=== PATIENT | female | born 1945 | race Two or more races ===

== ENCOUNTER 2019-09-22 21:51 | Inpatient (IN) | payer MEDICARE, BC ==
[~2019-09-22] VITALS: Ht 172.7 cm; Wt 68.0 kg
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
[2019-09-22 22:22] LABS: BASOPHILS # (AUTO) 0.1 /CMM (0.0-0.2); BASOPHILS % (AUTO) 0.7 % (0.0-2.0); EOSINOPHILS % (AUTO) 4.5 % (0.0-6.0); HEMATOCRIT 48 % (33-45); HEMOGLOBIN 16.3 g/dL (11.5-14.8); LYMPHOCYTES # (AUTO) 1.7 /CMM (0.8-4.8); LYMPHOCYTES % (AUTO) 21.1 % (20.0-44.0); MEAN CORPUSCULAR HGB CONC 34 g/dl (31.0-36.0); MEAN CORPUSCULAR VOLUME 91 fL (82-100); MONOCYTES # (AUTO) 0.6 /CMM (0.1-1.30); MONOCYTES % (AUTO) 7.1 % (2.0-12.0); NEUTROPHILS # (AUTO) 5.4 /CMM (1.8-8.9); NEUTROPHILS % (AUTO) 66.6 % (43.0-81.0); PLATELET COUNT (AUTO) 255 /CMM (150-450); RED BLOOD CELL COUNT(AUTO) 5.28 MIL/uL (4.0-5.2); WHITE BLOOD COUNT (AUTO) 8.2 K/uL (4.3-11.0)
[2019-09-22 22:24] LABS: APPEARANCE,URINE Clear (CLEAR); BILIRUBIN,URINE Negative (NEGATIVE); BLOOD, URINE Negative Ery/uL (NEGATIVE); COLOR,URINE Yellow (YELLOW); KETONES,URINE Negative (NEGATIVE); LEUKOCYTE ESTERASE ,URINE Small (NEGATIVE); NITRITE, URINE Negative (NEGATIVE); PROTEIN,URINE 100 mg/dl (NEGATIVE); UGLUCOSE Negative (NEGATIVE); UROBILINOGEN,URINE 0.2 EU/dL (0.2)
[2019-09-22 22:31] LABS: CALCIUM, SERUM 9.5 mg/dL (8.5-10.1); CARBON DIOXIDE 30 mmol/L (21-32); CHLORIDE 101 mmol/L (98-107); CREATININE 1.1 mg/dL (0.6-1.3); GLUCOSE 124 mg/dL (74-106); POTASSIUM 3.9 mmol/L (3.5-5.1); SODIUM SERUM 137 mmol/L (136-145); UREA NITROGEN, BLOOD 10 mg/dL (7-18)
[2019-09-22 22:36] LABS: ALANINE AMINOTRANSFERASE 31 U/L (12-78); ALBUMIN 4.2 g/dL (3.4-5.0); ALCOHOL, BLOOD < 3 mg/dL (0-0); ALKALINE PHOSPHATASE 112 U/L (46-116); ASPARTATE AMINOTRANSFERASE 25 U/L (15-37); BILIRUBIN,DIRECT 0.1 mg/dL (0.0-0.2); BILIRUBIN,TOTAL 0.5 mg/dL (0.2-1.0); SALICYLATE 9.1 mg/dL (2.8-20.0); TOTAL PROTEIN, SERUM 7.7 g/dL (6.4-8.2)
[2019-09-22 22:39] LABS: ACETAMINOPHEN < 2 ug/ml (10-30)
[2019-09-22 22:39] LABS: BACTERIA,URINE 1+ /HPF (None Seen); RBC,URINE NONE SEEN /HPF (0-2); SQUAMOUS EPITHELIAL CELL,UR Few /HPF (None Seen)
--- NOTE | 2019-09-22 23:01 | NUR ---
PT MEDICALLY CLEARED FOR PSYCH EVAL PER ER MD. FERNIE ESPINALW PAGED PER ER MD ORDER.
--- NOTE | 2019-09-22 23:42 | NUR ---
FERNIE ESPINALW AT BEDSIDE TO [place] WHEELER.
--- NOTE | 2019-09-22 23:45 | NUR ---
PT PLACED ON 5150 HOLD (GRAVELY DISABLED) BY FERNIE HAWK LCSW.
[2019-09-23] VITALS (7 sets, daily range): BP systolic 147–198; BP diastolic 70–105
--- NOTE | 2019-09-23 | NUR ---
ER MD SPOKE TO DR. MARTINEZ REGARDING PT ADMISSION.
--- NOTE | 2019-09-23 00:02 | NUR ---
GPS 219-1
--- NOTE | 2019-09-23 00:09 | NUR ---
REPORT CALLED TO CLAY ZULETA FAA. PENDING ADMISSION.
[2019-09-23] MEDS ORDERED: CLON0.2T PO (00:15)
[2019-09-23] MEDS ORDERED: BENA40TA8 PO (00:15)
[2019-09-23] MEDS ORDERED: IBAN150T16 PO (00:15)
[2019-09-23] MEDS ORDERED: SERT100T PO (00:15)
[2019-09-23] MEDS ORDERED: HYDR-500 PO (00:15)
[2019-09-23] MEDS ORDERED: ATOR40TA PO (00:15)
[2019-09-23] MEDS ORDERED: LEVO25TA9 PO (00:15)
[2019-09-23] MEDS ORDERED: ALPR0.5T PO (00:15)
[2019-09-23] MEDS ORDERED: ONDANSETRON HCL/PF 4 MG/2 ML VIAL ONE ×2 (00:25→02:09)
[2019-09-23] MEDS ORDERED: hydrALAZINE HCL IV 20 MG VIAL ONE ×2 (00:25→01:07)
[2019-09-23] MEDS ORDERED: ONDANSETRON HCL/PF - ER 4 MG/2 ML VIAL IV ONE (00:30)
[2019-09-23] MEDS ORDERED: hydrALAZINE HCL IV 20 MG VIAL IV ONE ×2 (00:30→02:00)
--- NOTE | 2019-09-23 02:09 | NUR ---
zofran 4mg ivp verbal order from dr. dorantes. unable to add order d/t patient location already in GPS
--- NOTE | 2019-09-23 02:41 | NUR ---
report given to margaret perez for update on pt's disposition
[2019-09-23] MEDS ORDERED: MAGNESIUM HYDROXIDE 30 ML UDC PO PRN (03:30)
[2019-09-23] MEDS ORDERED: ACETAMINOPHEN 325 MG TABLET PO PRN (03:30)
[2019-09-23] MEDS ORDERED: MAG HYDROX/AL HYDROX/SIMETH 30 ML UDC PO PRN (03:30)
[2019-09-23] MEDS ORDERED: LORAZEPAM 1 MG TABLET PO PRN (03:30)
[2019-09-23] MEDS ORDERED: ZOLPIDEM TARTRATE 5 MG TABLET PO PRN (03:30)
[2019-09-23] MEDS ORDERED: BLOOD SUGAR DIAGNOSTIC 1 EACH STRIP IN ONE (04:00)
[2019-09-23] MEDS ORDERED: GABA-534 PO (04:13)
[2019-09-23] MEDS ORDERED: AMLO10TA7 PO (04:15)
[2019-09-23] MEDS ORDERED: ISOS60TA4 PO (04:16)
[2019-09-23] MEDS ORDERED: ALBU8.5H8 INH (04:18)
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
[2019-09-23] MEDS ORDERED: ONDANSETRON HCL 4 MG/5 ML SOLUTION PO PRN (07:00)
[2019-09-23] MEDS: NICOTINE PATCH (21MG) 21 MG PATCH.TD24 TD SCH (09:29)
--- NOTE | 2019-09-23 10:25 | NUR ---
pt w ongoing nausea which has decreased w zofran. however, pt c/o gastric pain. lost charge card clerk reveiwed. try maalox 30cc monitor assist
--- NOTE | 2019-09-23 10:48 | NUR ---
RN NOTE- OPTOMETRIST ENEDELIA ROSADO ORDERED REGLAN 10 MG PO Q6H PRN. FIRST DOSE GIVEN
[2019-09-23] MEDS ORDERED: METOCLOPRAMIDE HCL 10 MG TABLET PO PRN (11:00)
--- NOTE | 2019-09-23 12:00 | NUR ---
RN NOTE- NAUSEA VOMITING CONTINUES. ENEDELIA ROSADO ORDERED ABDOMINAL KUB. STAT. ORDERED.
--- NOTE | 2019-09-23 12:30 | NUR ---
Family Contact: ELKE spoke to the pts brother, Rhys ([phone]), and informed him about the pts current behavior. He stated that the pt has been hallucinating and has been paranoid. He states that the pt lives in the pts mother's trailer and that the mother lives nearby as well as another brother. Pts brother stated that he does not believe that returning to the trailer would be the best decision for her and stated that his niece recommended [facility]. ELKE stated that she work on placing the pt at the facility.
--- NOTE | 2019-09-23 12:34 | NUR ---
Facility Contact: ELKE contacted Gracie ([phone]), implant coordinator for [facility], and confirmed that the pt can be discharged to their facility once she is stable.
--- NOTE | 2019-09-23 15:45 | NUR ---
RN NOTE- ELEVATED BP 198/105. ENEDELIA ROSADO ORDERED HYDRALAZINE 50 MG X ONE DOSE. CURRENTLY WITHOUT N&V, CALM QUIET.
[2019-09-23] MEDS: GABAPENTIN 300 MG CAPSULE PO SCH (16:10)
[2019-09-23] MEDS ORDERED: hydrALAZINE HCL 50 MG TABLET PO ONE (16:30)
--- NOTE | 2019-09-23 16:36 | NUR ---
Initial Discharge Plan: Pt currently resides in her mother's trailer located at [address] [place] [address]. Pts brother, Rhys ([phone]), stated that the pt was accepted to [facility]. SW will work with the MD and the pt regarding appropriate discharge planning. SW will form a safe and proper plan.
[2019-09-23] MEDS ORDERED: hydrALAZINE HCL 50 MG TABLET PO SCH (18:30)
[2019-09-23] MEDS ORDERED: NIFEdipine XL (30MG) 30 MG TAB PO SCH (18:30)
--- NOTE | 2019-09-23 18:32 | NUR ---
RN NOTE- PT W DECREASED N&V THIS AFTERNOON. PT EATING AND DRINKING VERY LITTLE. ENEDELIA ROSADO AWARE. THIS AFTERNOON, PT BP INCREASED . HYDRALAZINE 50 MG GIVEN X ONE DOSE. BP RECHECK - 197/103. ENEDELIA ROSADO ORDERED PROCARDIA 60 MG X ONE DOSE AND HYDRALAZINE 50 MG X ONE DOSE. PT NAUSEA INCREASING AGAIN. ENEDELIA ROSADO AWARE THAT MEDS TO BE RECONCILED.
[2019-09-23] MEDS ORDERED: ALBUTEROL SULFATE INH 18 GM HFA.AER.AD IH PRN (19:00)
[2019-09-23] MEDS ORDERED: hydrOXYzine PAMOATE 25 MG CAPSULE PO PRN (19:30)
[2019-09-23] MEDS: CEPHALEXIN MONOHYDRATE 250 MG CAPSULE PO SCH (19:39)
--- NOTE | 2019-09-23 20:23 | NUR ---
GPS-RN NOTE: PATIENT C/O FEELING ANXIOUS AND REQUESTING FOR ATIVAN. ADMINISTERED ATIVAN 1MG PO ORDERED. WILL CONTINUE TO MONITOR FOR PATIENT'S SAFETY.
--- NOTE | 2019-09-23 21:16 | NUR ---
GPS-RN NOTE: PATIENT C/O OF CONSTIPATION. ADMINISTERED MOM 30ML PO ORDERED. WILL CONTINUE TO MONITOR.
[2019-09-23] MEDS ORDERED: CLONIDINE HCL 0.1 MG TABLET PO PRN (21:30)
[2019-09-23] MEDS ORDERED: ATORVASTATIN 40 MG TABLET PO SCH (22:00)
[2019-09-23] MEDS ORDERED: QUETIAPINE FUMARATE 25 MG TABLET PO SCH (22:00)
--- NOTE | 2019-09-23 22:44 | NUR ---
GPS-RN NOTE: SPOKE WITH DR. MARTINEZ NOTIFIED OF PT'S BLOOD PRESSURE STILL NOTED TO BE ON THE HIGH SIDE. VITAL SIGNS TAKEN AND NOTED : BP 189/116 KY 107, O2 SATURATION 94% ON ROOM AIR. T98.5. DR. MARTINEZ ORDERED TO GIVE CLONIDINE AND EKG STAT NOTED AND CARRIED OUT. WILL CONTINUE TO MONITOR FOR PT'S SAFETY.
--- NOTE | 2019-09-23 23:13 | NUR ---
GPS-RN NOTE: EKG RESULT RELAYED TO DR. MARTINEZ EKG RESULT, SINUS RHYTHM WITH MARKED SINUS ARRHYTHMIA. DR. MARTINEZ ORDERED TO DO STAT TROPONIN NOTED AND CARRIED OUT. LATEST PATIENT'S BP 154/98, ME 126, T-98.2. NO C/O CHEST PAIN NOTED. WILL CONTINUE TO MONITOR.
--- NOTE | 2019-09-24 01:25 | NUR ---
GPS-RN NOTE: TROPONIN LEVEL RESULT RELAYED TO DR. MARTINEZ TROPONIN RESULTED TO 0.[address] MARTINEZ ORDERED TO REPEAT EKG AND TROPONIN IN 4HRS AND GIVE AN ASPIRIN 325MG PO X1 NOW, ORDERS NOTED AND CARRIED OUT.
[2019-09-24] MEDS ORDERED: ASPIRIN 325 MG TABLET PO ONE (01:30)
--- NOTE | 2019-09-24 05:42 | NUR ---
GPS-RN NOTE: REPEAT EKG RESULT RELAYED TO DR. MARTINEZ REPEAT EKG RESULT AND MD STATED "IT LOOKS BETTER". DR. MARTINEZ ORDERED 2D ECHOCARDIOGRAM AND ASPIRIN 81MG PO DAILY. ALL ORDERS NOTED AND CARRIED OUT. AWAITING FOR THE RESULT OF REPEAT TROPONIN. WILL ENDORSE TO THE DAY SHIFT NURSE FOR CONTINUITY OF CARE.
[2019-09-24] MEDS ORDERED: LEVOTHYROXINE SODIUM 25 MCG TABLET PO SCH (07:30)
[2019-09-24 08:00] VITALS: BP 118/60
[2019-09-24] MEDS: GABAPENTIN 300 MG CAPSULE PO SCH (08:01)
[2019-09-24] MEDS: NICOTINE PATCH (21MG) 21 MG PATCH.TD24 TD SCH (08:01)
[2019-09-24] MEDS: CEPHALEXIN MONOHYDRATE 250 MG CAPSULE PO SCH (08:01)
[2019-09-24 08:15] LABS: CHOLESTEROL 155 mg/dL (<200); HDL CHOLESTEROL 67 mg/dL (40-60); LDL 68 mg/dL (0-99); TRIGLYCERIDES 103 mg/dL (30-150)
--- NOTE | 2019-09-24 08:40 | NUR ---
RN NOTE- TROPONIN LEVEL BACK 0.215. LAST TROPONIN LEVEL 0.096. FORWARDED FINDINGS TO ENEDELIA ROSADO. HE'LL HAVE DR LUNA EVALUATE. CURRENT B/P- 118/60 HR-81
[2019-09-24 08:55] LABS: CALCIUM, SERUM 10.4 mg/dL (8.5-10.1); CARBON DIOXIDE 29 mmol/L (21-32); CHLORIDE 94 mmol/L (98-107); GLUCOSE 120 mg/dL (74-106); SODIUM SERUM 139 mmol/L (136-145); UREA NITROGEN, BLOOD 21 mg/dL (7-18)
[2019-09-24] MEDS ORDERED: BENAZEPRIL HCL 20 MG TABLET PO SCH (09:00)
[2019-09-24] MEDS ORDERED: CLONIDINE HCL 0.1 MG TABLET PO PRN (09:00)
[2019-09-24] MEDS ORDERED: ISOSORBIDE MONONITRATE (30MG) 30 MG TAB.SR.24H PO SCH (09:00)
[2019-09-24] MEDS ORDERED: SERTRALINE HCL 50 MG TABLET PO SCH (09:00)
[2019-09-24] MEDS ORDERED: ASPIRIN 81 MG TAB.CHEW PO SCH (09:00)
[2019-09-24] MEDS ORDERED: GABAPENTIN 300 MG CAPSULE PO SCH (09:00)
--- NOTE | 2019-09-24 09:00 | NUR ---
RN NOTE- CARDIAC ECHO BEING DONE, ATE 100% AM MEAL. MED COMPLIANT. B/P WNL THIS MORNING 118/60. GETTING PT OOB TO SHOWER LATER THIS MORNING DENIES ALL. CONFUSED
[2019-09-24 09:14] VITALS: BP 131/84
[2019-09-24] MEDS: POTASSIUM CHLORIDE 20 MEQ TAB.PRT.SR PO SCH ×3 (09:46→11:30)
--- NOTE | 2019-09-24 11:14 | NUR ---
DR. OCHOA COVERING FOR DR. PIEDRA MADE AWARE THAT PT. WITH AN ORDER TO TRANSFER TO MED-SURG AND ORDERED TO D/C PT. MED-SURG AND TO CONTINUE SAME MEDS INCLUDING PRN. Addendum: 09/24/19 at 1123 by REYES SANCHEZ RN PT. TO CONTINUE ON HOLD.
--- NOTE | 2019-09-24 11:25 | NUR ---
RN NOTE- THIS RN SPOKE W ENEDELIA ROSADO REGARDING PTS CHEST PAIN , ELEVATED BP, TROPONIN LEVELS AND CARDIAC ISSUES. ENEDELIA ROSADO ORDERED PT TO BE TRANSFERRED TO MED SURG FLOOR FOR ARF AND CHEST PAIN CARDIAC ISSUES. COVID TEST DONE AT THIS TIME PER ORDERS. DC PLANNING DONE, FAMILY INSTRUCTED OF TRANSFER AND PT UPDATED AND INFORMED,
[2019-09-24] MEDS ORDERED: ENOXAPARIN SODIUM 60 MG/0.6 ML DISP.SYRIN SQ SCH (12:00)
[2019-09-24] MEDS ORDERED: METOPROLOL TARTRATE 50 MG TABLET PO SCH (12:00)
[2019-09-24] MEDS ORDERED: ENOX60DI SQ (12:09)
[2019-09-24] MEDS ORDERED: NICO-676 TD (12:09)
[2019-09-24] MEDS ORDERED: ONDA4TAB5 PO (12:09)
[2019-09-24] MEDS ORDERED: METO25TA20 PO (12:09)
[2019-09-24] MEDS ORDERED: ACET-868 PO (12:09)
[2019-09-24] MEDS ORDERED: ASPI-1169 PO (12:09)
[2019-09-24] MEDS ORDERED: CEPH250C PO (12:09)
[2019-09-24] MEDS ORDERED: SERT50TA PO (12:09)
[2019-09-24] MEDS ORDERED: MAGN400O6 PO (12:09)
[2019-09-24] MEDS ORDERED: LORA-259 PO (12:09)
[2019-09-24] MEDS ORDERED: MAG30ORA PO (12:09)
[2019-09-24] MEDS ORDERED: ZOLP5TAB8 PO (12:09)
[2019-09-24] MEDS ORDERED: ALBU18HF2 INH (12:09)
[2019-09-24] MEDS ORDERED: METO-295 PO (12:09)
[2019-09-24] MEDS ORDERED: QUET50TA PO (12:09)
[2019-09-24] MEDS ORDERED: IV NS 0.9% 1,000 ML IV PRN (13:00)
[2019-09-24 15:56] LABS: BASOPHILS # (AUTO) 0.1 /CMM (0.0-0.2); BASOPHILS % (AUTO) 0.4 % (0.0-2.0); EOSINOPHILS % (AUTO) 0.8 % (0.0-6.0); HEMATOCRIT 50 % (33-45); HEMOGLOBIN 16.9 g/dL (11.5-14.8); LYMPHOCYTES # (AUTO) 2.5 /CMM (0.8-4.8); LYMPHOCYTES % (AUTO) 16.3 % (20.0-44.0); MEAN CORPUSCULAR HGB CONC 34 g/dl (31.0-36.0); MEAN CORPUSCULAR VOLUME 90 fL (82-100); MONOCYTES # (AUTO) 1.1 /CMM (0.1-1.30); MONOCYTES % (AUTO) 7.1 % (2.0-12.0); NEUTROPHILS # (AUTO) 11.8 /CMM (1.8-8.9); NEUTROPHILS % (AUTO) 75.4 % (43.0-81.0); PLATELET COUNT (AUTO) 286 /CMM (150-450); RED BLOOD CELL COUNT(AUTO) 5.56 MIL/uL (4.0-5.2); WHITE BLOOD COUNT (AUTO) 15.6 K/uL (4.3-11.0)
== END 2019-09-24 12:25 | disposition short-term general hospital (02) | DRG 885 ==
LOC: ER 21:51 → GPS 09-23 00:47
PROVIDERS: ADMIT Psychiatry & Neurology Psychiatry; ATTEND Student in an Organized Health Care Education/Training Program
DX: F29 Unspecified psychosis not due to a substance or known physiological condition (principal); N17.9 Acute kidney failure, unspecified; I21.A1 Myocardial infarction type 2; N39.0 Urinary tract infection, site not specified; F41.9 Anxiety disorder, unspecified; F03.90 Unspecified dementia, unspecified severity, without behavioral disturbance, psychotic disturbance, mood disturbance, and anxiety; I10 Essential (primary) hypertension; E03.9 Hypothyroidism, unspecified; E78.5 Hyperlipidemia, unspecified; F22 Delusional disorders; F25.0 Schizoaffective disorder, bipolar type; E86.0 Dehydration; F17.210 Nicotine dependence, cigarettes, uncomplicated
CPT/HCPCS: 36415; 74018; 80048-TC; 80061-TC; 80076-TC; 80305; 81000-TC; 84443-TC; 84484-TC; 85025-TC; 87081-TC; 87086-TC; 93307-TC; G0480; J0360; J1650; J2405; J8597; Q0162; U0003-CS

== ENCOUNTER 2019-09-24 11:58 | Inpatient (IN) | payer MEDICARE, BC ==
[~2019-09-24] VITALS: Ht 154.9 cm; Wt 68.0 kg
[~2019-09-24 11:58] MED LIST: ALBU8.5H8 INH; AMLO10TA7 PO; ATOR40TA PO; BENA40TA8 PO; CLON0.2T PO; GABA-534 PO; HYDR-500 PO; IBAN150T16 PO; ISOS60TA4 PO; LEVO25TA9 PO
[2019-09-24] MEDS ORDERED: ASPI-1169 PO (12:09)
[2019-09-24] MEDS ORDERED: QUET50TA PO (12:09)
[2019-09-24] MEDS ORDERED: ENOX60DI SQ (12:09)
[2019-09-24] MEDS ORDERED: MAGN400O6 PO (12:09)
[2019-09-24] MEDS ORDERED: ONDA4TAB5 PO (12:09)
[2019-09-24] MEDS ORDERED: CEPH250C PO (12:09)
[2019-09-24] MEDS ORDERED: NICO-676 TD (12:09)
[2019-09-24] MEDS ORDERED: METO-295 PO (12:09)
[2019-09-24] MEDS ORDERED: ALBU18HF2 INH (12:09)
[2019-09-24] MEDS ORDERED: MAG30ORA PO (12:09)
[2019-09-24] MEDS ORDERED: LORA-259 PO (12:09)
[2019-09-24] MEDS ORDERED: ACET-868 PO (12:09)
[2019-09-24] MEDS ORDERED: SERT50TA PO (12:09)
[2019-09-24] MEDS ORDERED: ZOLP5TAB8 PO (12:09)
[2019-09-24] MEDS ORDERED: METO25TA20 PO (12:09)
[2019-09-24 13:30] VITALS: BP 103/66
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
--- NOTE | 2019-09-24 14:00 | NUR ---
NOTIFIED NOTIFIED DR. ROSADO RE ADMISSION. PER MD HE WILL PUT IN ADMITTING ORDERS.
[2019-09-24] MEDS ORDERED: LORAZEPAM 1 MG TABLET PO PRN (14:30)
[2019-09-24] MEDS ORDERED: QUETIAPINE FUMARATE 25 MG TABLET PO PRN (14:30)
[2019-09-24] MEDS ORDERED: ONDANSETRON HCL/PF 4 MG/2 ML VIAL IVP PRN (14:30)
[2019-09-24] MEDS ORDERED: Z GUARD REMEDY 2 OZ OINT TP PRN (14:30)
[2019-09-24] MEDS ORDERED: ACETAMINOPHEN 325 MG TABLET PO PRN (14:30)
[2019-09-24] MEDS ORDERED: ALBUTEROL SULFATE INH 18 GM HFA.AER.AD IH PRN (14:30)
[2019-09-24] MEDS ORDERED: MAG HYDROX/AL HYDROX/SIMETH 30 ML UDC PO PRN (14:30)
[2019-09-24] MEDS ORDERED: METOCLOPRAMIDE HCL 10 MG TABLET PO PRN (14:30)
[2019-09-24] MEDS ORDERED: ZOLPIDEM TARTRATE 5 MG TABLET PO PRN (14:30)
[2019-09-24] MEDS ORDERED: hydrOXYzine 10 MG TABLET PO PRN (15:00)
--- NOTE | 2019-09-24 15:00 | NUR ---
COVID TESTING SPECIMEN COLLECTED FOR COVID TESTING. SENT TO LAB.
[2019-09-24] MEDS: IV NS 0.9% 1,000 ML IV PRN (16:32)
[2019-09-24] MEDS: CEPHALEXIN MONOHYDRATE 250 MG CAPSULE PO SCH (16:51)
[2019-09-24] MEDS: GABAPENTIN 300 MG CAPSULE PO SCH (16:51)
[2019-09-24] MEDS: ENOXAPARIN SODIUM 60 MG/0.6 ML DISP.SYRIN SQ SCH (16:52)
--- NOTE | 2019-09-24 17:00 | NUR ---
TROPONIN NOTIFIED DR. ROSADO RE: TROPONIN RESULTS. AWARE.
[2019-09-24] MEDS: METOPROLOL TARTRATE 25 MG TABLET PO SCH ×2 (17:10→23:56)
--- NOTE | 2019-09-24 18:25 | NUR ---
PLY BANDER CLOSING NOTES PT IN BED. AWAKE, ALERT AND ORIENTED X 3. WITH SOME PARANOIA. AMBULATORY. NO CARDIAC OR RESP DISTRESS NOTED. NO COMPLAINTS OF PAIN OR DISCOMFORT. NO SOB NOTED. SATURATING WELL ON ROOM AIR. IV ACCESS NOTED ON L FOREARM G20. INTACT ND PATENT AND FLUSHING WELL. NS RUNNING AT 75ML/HR. TOLERATING IV FLUIDS WELL. PT CONTINENT OF B/B. AMBULATES TO THE BATHROOM. SITTER BY BEDSIDE. SAFETY PRECAUTIONS IN PLACE. BED LOCKED AND IN LOW POSITION. SIDE RAILS UP. BED ALARM ON. WILL ENDORSE TO NEXT SHIFT.
--- NOTE | 2019-09-24 19:10 | NUR ---
CLINICAL RESEARCH COORDINATOR OPENING NOTES: Received pt awake in bed A&Ox3 on isolation for R/O Covid. SR on tele monitor. On room air, tolerating well. No SOB or respiratory distress noted. No pain noted at this time. Pt ambulatory with steady gait. Has 1:1 sitter. IV site on left FA patent and flushing with NS running at 75ml/hr tolerating well. Dressing c/d/i. Safety measures met. Will continue to monitor.
[2019-09-24 20:00] VITALS: BP 116/74
[2019-09-24] MEDS: ATORVASTATIN 40 MG TABLET PO SCH (21:20)
[2019-09-25] VITALS: BP 136/88
[2019-09-25 04:00] VITALS: BP 148/68
--- NOTE | 2019-09-25 05:57 | NUR ---
[employer] POLICE OFFICER NOTE: 0550: Pt noted w/ BP: 157/79 and HR: 47. 0553: Paged Dr. Linn who gave order to hold 0600 dose. Order noted.
[2019-09-25] MEDS: METOPROLOL TARTRATE 25 MG TABLET PO SCH ×3 (05:59→18:00)
[2019-09-25 06:45] LABS: BASOPHILS # (AUTO) 0.1 /CMM (0.0-0.2); BASOPHILS % (AUTO) 0.9 % (0.0-2.0); EOSINOPHILS % (AUTO) 2.6 % (0.0-6.0); HEMATOCRIT 49 % (33-45); HEMOGLOBIN 16.6 g/dL (11.5-14.8); LYMPHOCYTES # (AUTO) 2.6 /CMM (0.8-4.8); LYMPHOCYTES % (AUTO) 27.8 % (20.0-44.0); MEAN CORPUSCULAR HGB CONC 34 g/dl (31.0-36.0); MEAN CORPUSCULAR VOLUME 90 fL (82-100); MONOCYTES # (AUTO) 0.7 /CMM (0.1-1.30); MONOCYTES % (AUTO) 7.9 % (2.0-12.0); NEUTROPHILS # (AUTO) 5.7 /CMM (1.8-8.9); NEUTROPHILS % (AUTO) 60.8 % (43.0-81.0); PLATELET COUNT (AUTO) 242 /CMM (150-450); RED BLOOD CELL COUNT(AUTO) 5.42 MIL/uL (4.0-5.2); WHITE BLOOD COUNT (AUTO) 9.4 K/uL (4.3-11.0)
--- NOTE | 2019-09-25 06:56 | NUR ---
FOOD SAFETY MANAGER CLOSING NOTES: Pt resting in bed comfortably sating well on RA. Isolation precautions in place for R/O Covid. No SOB or respiratory distress noted during shift. No acute changes noted during shift. All medications administered as ordered. Safety measures in place. Will endorse to AM nurse for MOHAN.
[2019-09-25 07:00] LABS: CHOLESTEROL 130 mg/dL (<200); CREATINE KINASE, TOTAL 339 U/L (26-192); HDL CHOLESTEROL 42 mg/dL (40-60); LDL 59 mg/dL (0-99); THYROID STIMULATING HORMONE 1.746 uIU/mL (0.358-3.74); TRIGLYCERIDES 184 mg/dL (30-150)
--- NOTE | 2019-09-25 07:57 | NUR ---
PUMP STITCHER NOTES: Received Patient resting in bed comfortably in moderate high back rest. sating well on RA. Isolation precautions in place for R/O Covid. Sitter noted at bedside. No SOB or respiratory distress noted at this time. Safety measures in place, bed placed in lowest locked position with side rails up x2. call light within easy reach. Will Continue to monitor.
[2019-09-25 08:00] VITALS: BP 187/97
[2019-09-25] MEDS: LEVOTHYROXINE SODIUM 25 MCG TABLET PO SCH (08:30)
[2019-09-25] MEDS: NICOTINE PATCH (14MG) 14 MG PATCH.TD24 TD SCH (08:31)
[2019-09-25] MEDS: SERTRALINE HCL 50 MG TABLET PO SCH (08:31)
[2019-09-25] MEDS: ASPIRIN 81 MG TAB.CHEW PO SCH (08:31)
[2019-09-25] MEDS: CEPHALEXIN MONOHYDRATE 250 MG CAPSULE PO SCH ×3 (08:31→16:10)
[2019-09-25] MEDS: GABAPENTIN 300 MG CAPSULE PO SCH ×3 (08:31→16:10)
[2019-09-25 08:34] LABS: ALBUMIN 3.8 g/dL (3.4-5.0); ALKALINE PHOSPHATASE 99 U/L (46-116); ASPARTATE AMINOTRANSFERASE 49 U/L (15-37); BILIRUBIN,TOTAL 0.5 mg/dL (0.2-1.0); CARBON DIOXIDE 27 mmol/L (21-32); CHLORIDE 94 mmol/L (98-107); CREATININE 1.6 mg/dL (0.6-1.3); PHOSPHORUS 2.9 mg/dL (2.5-4.9); POTASSIUM 4.6 mmol/L (3.5-5.1); SODIUM SERUM 133 mmol/L (136-145); UREA NITROGEN, BLOOD 34 mg/dL (7-18)
[2019-09-25 08:55] LABS: IRON, SERUM 107 ug/dl (50-175); TOTAL IRON BINDING CAPACITY 302 ug/dl (250-450)
[2019-09-25] MEDS ORDERED: ISOSORBIDE MONONITRATE 60 MG TAB.SR.24H PO SCH (09:00)
[2019-09-25] MEDS ORDERED: BENAZEPRIL HCL 20 MG TABLET PO SCH (09:00)
--- NOTE | 2019-09-25 09:00 | NUR ---
RN NOTES MD NOTIFIED REGARDING BP OF 187/97 AND PULSE OF RANGING FROM 45-51, ASKED IF OK TO GIVE ISOSORBIDE 60 MG, BENAZEPRIL 40MG AND AMLODIPINE 10MG, PER DR. ASHLEE FRANCOIS TO GIVE ALTOGETHER. WILL CONTINUE TO MONITOR.
[2019-09-25 09:04] LABS: ALANINE AMINOTRANSFERASE 42 U/L (12-78); CALCIUM, SERUM 9.8 mg/dL (8.5-10.1); GLUCOSE 107 mg/dL (74-106); MAGNESIUM 2.6 mg/dL (1.8-2.4); TOTAL PROTEIN, SERUM 7.3 g/dL (6.4-8.2)
[2019-09-25] MEDS: AMLODIPINE BESYLATE 10 MG TABLET PO SCH (09:38)
--- NOTE | 2019-09-25 10:00 | NUR ---
RN NOTES RECHECKED BP, BP FOLLOWS: 167/95 HR OF 56, WILL CONTINUE TO MONITOR.
[2019-09-25] MEDS: ISOSORBIDE MONONITRATE (30MG) 30 MG TAB.SR.24H PO SCH (10:31)
[2019-09-25 12:00] VITALS: BP 162/90
[2019-09-25 16:00] VITALS: BP 137/73
[2019-09-25] MEDS: ENOXAPARIN SODIUM 60 MG/0.6 ML DISP.SYRIN SQ SCH (16:11)
[2019-09-25 18:18] LABS: APPEARANCE,URINE CLEAR (CLEAR); BILIRUBIN,URINE NEGATIVE (NEGATIVE); BLOOD, URINE TRACE-INTA Ery/uL (NEGATIVE); COLOR,URINE YELLOW (YELLOW); KETONES,URINE NEGATIVE (NEGATIVE); LEUKOCYTE ESTERASE ,URINE NEGATIVE (NEGATIVE); NITRITE, URINE NEGATIVE (NEGATIVE); PH,URINE 7.5 (5.0-8.0); PROTEIN,URINE NEGATIVE (NEGATIVE); UGLUCOSE NEGATIVE (NEGATIVE); UROBILINOGEN,URINE 0.2 EU/dL (0.2)
--- NOTE | 2019-09-25 18:32 | NUR ---
CREATIVE ARTS THERAPIST NOTES: Patient resting in bed comfortably in moderate high back rest. sating well on RA. Isolation precautions in place for R/O Covid. Sitter noted at bedside. on tele monitor with current reading of SB 50's. No SOB or respiratory distress noted throughout the shift. Safety measures in place, bed placed in lowest locked position with side rails up x2. call light within easy reach. Will endorse to punchboard inserter nurse for ramiro.
[2019-09-25 18:44] LABS: CREATININE, URINE 42.9 MG/DL (30.0-125.0)
[2019-09-25 18:52] LABS: BACTERIA,URINE None seen /HPF (None Seen); SQUAMOUS EPITHELIAL CELL,UR 0-2 /HPF (None Seen); WBC,URINE 0-2 /HPF (0-3)
[2019-09-25 20:00] VITALS: BP 147/77
[2019-09-25 20:01] LABS: EOSINOPHIL,URINE None Seen
[2019-09-25] MEDS ORDERED: QUETIAPINE FUMARATE 25 MG TABLET PO SCH (22:00)
[2019-09-25] MEDS: ATORVASTATIN 40 MG TABLET PO SCH (22:21)
[2019-09-26] VITALS: BP 159/93
[2019-09-26] MEDS: CLONIDINE HCL 0.1 MG TABLET PO PRN ×2 (01:27→15:54)
[2019-09-26] MEDS: IV NS 0.9% 1,000 ML IV PRN ×2 (01:36→12:56)
[2019-09-26 02:32] VITALS: BP 136/75
[2019-09-26 04:00] VITALS: BP 138/73
[2019-09-26] MEDS: METOPROLOL TARTRATE 25 MG TABLET PO SCH ×3 (06:00→13:14)
--- NOTE | 2019-09-26 06:15 | NUR ---
EMBOSSING TOOLSETTER NOTES AWAKE & RESPONSIVE. NOT IN ANY DISTRESS. NO SOB NOTED. DENIES ANY PAIN OR DISCOMFORT AT THIS TIME. ON TELE SB @ 55 WITH IVF INFUSING WELL. MONITORED ACCORDINGLY. WITH SITTER AT BEDSIDE. CALL LIGHT WITHIN REACH. BED IN LOWEST POSITION. SR UP X 2 WITH BED ALARM ON FOR SAFETY. Addendum: 09/26/19 at 0632 by JAMES HENDERSON RN WILL ENDORSE TO NEXT SHIFT.
[2019-09-26] MEDS: LEVOTHYROXINE SODIUM 25 MCG TABLET PO SCH (07:30)
--- NOTE | 2019-09-26 07:30 | NUR ---
TELE/RN NOTE RECEIVED THE PATIENT IN BED. PATIENT IS ALERT AND ORIENTED X3. IN ROOM AIR AND DENIES SOB. RESPIRATION REGULAR AND UNLABORED. DENIES PAIN.LFA G 20 PATENT AND NS INFUSING AT 75ML/HR AND NO S/S INFILTRATION NOTED. PATIENT IS ON 5250 HOLD AND SITTER AT THE BEDSIDE. BED LOW AND LOCKED. SIDE RAILS UP X2. CALL LIGHT WITHIN REACH. WILL CONTINUE TO MONITOR.
[2019-09-26 07:36] LABS: BASOPHILS # (AUTO) 0.1 /CMM (0.0-0.2); BASOPHILS % (AUTO) 0.9 % (0.0-2.0); EOSINOPHILS % (AUTO) 4.2 % (0.0-6.0); HEMATOCRIT 43 % (33-45); HEMOGLOBIN 14.5 g/dL (11.5-14.8); LYMPHOCYTES # (AUTO) 2.3 /CMM (0.8-4.8); LYMPHOCYTES % (AUTO) 31.5 % (20.0-44.0); MEAN CORPUSCULAR HGB CONC 34 g/dl (31.0-36.0); MEAN CORPUSCULAR VOLUME 90 fL (82-100); MONOCYTES # (AUTO) 0.6 /CMM (0.1-1.30); MONOCYTES % (AUTO) 8.4 % (2.0-12.0); PLATELET COUNT (AUTO) 207 /CMM (150-450); RED BLOOD CELL COUNT(AUTO) 4.78 MIL/uL (4.0-5.2); WHITE BLOOD COUNT (AUTO) 7.2 K/uL (4.3-11.0)
[2019-09-26 07:49] LABS: ALBUMIN 3.2 g/dL (3.4-5.0); BILIRUBIN,TOTAL 0.5 mg/dL (0.2-1.0); CALCIUM, SERUM 8.5 mg/dL (8.5-10.1); CREATININE 0.9 mg/dL (0.6-1.3); MAGNESIUM 1.8 mg/dL (1.8-2.4); PHOSPHORUS 2.9 mg/dL (2.5-4.9); POTASSIUM 3.7 mmol/L (3.5-5.1); TOTAL PROTEIN, SERUM 6.2 g/dL (6.4-8.2)
[2019-09-26 08:00] VITALS: BP 147/69
[2019-09-26] MEDS: GABAPENTIN 300 MG CAPSULE PO SCH ×2 (09:00→13:14)
[2019-09-26] MEDS: SERTRALINE HCL 50 MG TABLET PO SCH (09:00)
[2019-09-26] MEDS: CEPHALEXIN MONOHYDRATE 250 MG CAPSULE PO SCH ×2 (09:00→13:14)
[2019-09-26] MEDS: ISOSORBIDE MONONITRATE (30MG) 30 MG TAB.SR.24H PO SCH (09:00)
[2019-09-26] MEDS: NICOTINE PATCH (14MG) 14 MG PATCH.TD24 TD SCH (09:00)
[2019-09-26] MEDS: ASPIRIN 81 MG TAB.CHEW PO SCH (09:00)
[2019-09-26] MEDS: AMLODIPINE BESYLATE 10 MG TABLET PO SCH (09:00)
--- NOTE | 2019-09-26 11:30 | NUR ---
MS/RN NOTE THE PATIENT IS IN RADIOLOGY DEPT FOR CT ANDIO HEART TEST.
[2019-09-26] MEDS ORDERED: IOHEXOL-350 100 ML VIAL IV ONE (11:36)
[2019-09-26] MEDS ORDERED: IV NS 0.9% 250 ML IV ONE (11:36)
--- NOTE | 2019-09-26 12:30 | NUR ---
MS/RN NOTE PATIENT`S BELONGINGS TAKEN TO MS3. NURSE JERARDO MCGOVERN.
--- NOTE | 2019-09-26 12:32 | NUR ---
MS/RN NOTE REPORT GIVEN TO NURSE JERARDO.
--- NOTE | 2019-09-26 12:40 | NUR ---
MS/decorating machine tender Patient transferred from [place] via CT scan. Remains on psychiatric hold /50started 09/25/19, sitter within arms reach at all times. Oriented to new surroundings, aware of how to operate bed television. Will continue to monitor and ensure safety.
[2019-09-26 13:19] VITALS: BP 176/74
--- NOTE | 2019-09-26 13:20 | NUR ---
MS/RN Blood pressure BP 176/74, metoprolol 50mg administered as ordered.
--- NOTE | 2019-09-26 15:00 | NUR ---
MS/RN S/B Dr Jasso Seen by Dr Jasso - patient medically cleares for readmission in GPS. Need to continue keflex po UNTIL 09/28/19.
--- NOTE | 2019-09-26 15:50 | NUR ---
MS/RN Hypertension Blood pressure 163/78, clonidine 0.2 given as ordered.
[2019-09-26 15:54] VITALS: BP 163/78
--- NOTE | 2019-09-26 16:26 | NUR ---
MS/insurance specialist Patient discharged back to GPS in stable condition. All personal belongings with patient and signed for on belongings list. Heplocks X2 removed along with name band. Report called to Vale, copies made of medication list, exit care and medical record. Escorted to GPS room 220B.
[2019-09-26] MEDS ORDERED: ENOXAPARIN SODIUM 40 MG/0.4 ML DISP.SYRIN SQ SCH (21:00)
[2019-09-28 08:06] LABS: PTH, INTACT 50 pg/mL (15-65)
[2019-09-28 15:06] LABS: CREATININE KINASE (CK),MB 3.8 ng/mL (0.0-5.3)
[2019-09-29 08:07] LABS: *SPE A/G RATIO 1.1 (0.7-1.7); *SPE ALBUMIN 3.1 g/dL (2.9-4.4); *SPE ALPHA-1-GLOBULIN 0.3 g/dL (0.0-0.4); *SPE BETA GLOBULIN 0.9 g/dL (0.7-1.3); *SPE GLOBULIN, TOTAL 2.8 g/dL (2.2-3.9); *SPE M-SPIKE Not Observed g/dL (Not Observed); *SPEGAMMA GLOBULIN 0.6 g/dL (0.4-1.8)
== END 2019-09-26 16:15 | DRG 280 ==
LOC: MED 11:58 → MEDSG1 13:07 → TELE1 16:01 → MEDSG1 09-26 10:33 → MED 09-26 11:39
PROVIDERS: ADMIT Nurse Practitioner Acute Care; ATTEND Nurse Practitioner Acute Care
DX: I21.4 Non-ST elevation (NSTEMI) myocardial infarction (principal); N17.0 Acute kidney failure with tubular necrosis; E87.1 Hypo-osmolality and hyponatremia; F05 Delirium due to known physiological condition; F33.3 Major depressive disorder, recurrent, severe with psychotic symptoms; E78.5 Hyperlipidemia, unspecified; E83.52 Hypercalcemia; E86.0 Dehydration; I10 Essential (primary) hypertension; E03.9 Hypothyroidism, unspecified; F03.90 Unspecified dementia, unspecified severity, without behavioral disturbance, psychotic disturbance, mood disturbance, and anxiety; G62.9 Polyneuropathy, unspecified; F41.9 Anxiety disorder, unspecified; M81.0 Age-related osteoporosis without current pathological fracture; Z79.82 Long term (current) use of aspirin; Z79.899 Other long term (current) drug therapy; Z79.51 Long term (current) use of inhaled steroids; F43.10 Post-traumatic stress disorder, unspecified; X58.XXXA Exposure to other specified factors, initial encounter; Y92.9 Unspecified place or not applicable; E86.9 Volume depletion, unspecified; I25.84 Coronary atherosclerosis due to calcified coronary lesion; Z91.410 Personal history of adult physical and sexual abuse
CPT/HCPCS: 36415; 75574; 80053-TC; 80061-TC; 81000-TC; 82550-TC; 82553; 82570-TC; 83540-TC; 83735-TC; 83970; 84100-TC; 84155; 84155-TC; 84165; 84300-TC; 84443-TC; 84484-TC; 85025-TC; G0378; J1650; J3490; J7030; J7050; Q9967; U0003-CS

== ENCOUNTER 2019-09-26 16:06 | Inpatient (IN) | payer MEDICARE, BC ==
[~2019-09-26] VITALS: Ht 154.9 cm; Wt 65.3 kg
[~2019-09-26 16:06] MED LIST changes: +ACET-868 PO; +ALBU18HF2 INH; -ALBU8.5H8 INH; +ASPI-1169 PO; +CEPH250C PO; +ENOX60DI SQ; +LORA-259 PO; +MAG30ORA PO; +MAGN400O6 PO; +METO-295 PO; +METO25TA20 PO; +NICO-676 TD; +ONDA4TAB5 PO; +QUET50TA PO; +SERT50TA PO; +ZOLP5TAB8 PO
[2019-09-26] MEDS ORDERED: MAG HYDROX/AL HYDROX/SIMETH 30 ML UDC PO PRN ×2 (16:30→23:30)
[2019-09-26] MEDS ORDERED: MAGNESIUM HYDROXIDE 30 ML UDC PO PRN ×2 (16:30→23:30)
[2019-09-26] MEDS ORDERED: BLOOD SUGAR DIAGNOSTIC 1 EACH STRIP IN ONE (16:30)
[2019-09-26] MEDS ORDERED: ZOLPIDEM TARTRATE 5 MG TABLET PO PRN ×2 (16:30→23:30)
--- NOTE | 2019-09-26 16:30 | NUR ---
DYNAMITE PACKING MACHINE FEEDER NOTE: PATIENT IS A 73 YEAR OLD FEMALE TRANSFERRED FROM THE MEDICAL/SURGICAL FLOOR ON A 5250 FOR GD. PT ORIGINALLY ADMITTED TO GPS AND TRANSFERRED TO THE MEDICAL FLOOR DUE TO HYPERTENSION, CHEST PAIN, N/V AND RULE OUT COVID-19. PT HAS A HISTORY OF HTN, ASTHMA, HYPERLIPIDEMIA AND HYPOTHYROIDISM. PT DX WITH UTI, ACUTE RENAL FAILURE AND NON-ST ELEVATED OK. PT ASSESS TO BE MEDICALLY STABLE AND TRANSFERRED TO GPS. UPON FACE TO FACE ASSESSMENT PT DENIES SI/HI/AH +VH. PT IS DELUSIONAL AND PARANOID. PT THE CEILING IS MOVING AND A FACE IS COMING TOWARD HER FROM THE CEILING. PT HAS A FLAT AND DEPRESSED AFFECT. PT IS EASILY AGITATED AND IRRITABLE. SPEECH IS CLEAR AND PRESSURED WITH A POOR ATTENTION SPAN. POOR SHORT TERM MEMORY. APPEARANCE IS WELL GROOMED. PT IS AMBULATORY WITH STEADY JEFFERY. PT CONTINENT WITH BRP. PT ORIENTED TO THE UNIT AND PATIENT HANDBOOK GIVEN WITH PATIENT'S RIGHTS AND GUID TO PRESCRIPTIONS
[2019-09-26 17:18] VITALS: BP 180/92
--- NOTE | 2019-09-26 20:42 | NUR ---
GPS/RN NOTES: CALLED DR. MARTINEZ REGARDING MED RECON.
[2019-09-26 20:48] VITALS: BP 149/74
[2019-09-26] MEDS ORDERED: ACETAMINOPHEN 325 MG TABLET PO PRN (23:30)
[2019-09-26] MEDS ORDERED: ONDANSETRON 4 MG TAB.RAPDIS PO PRN (23:30)
[2019-09-26] MEDS ORDERED: hydrOXYzine 10 MG TABLET PO PRN (23:30)
[2019-09-26] MEDS ORDERED: METOCLOPRAMIDE HCL 10 MG TABLET PO PRN (23:30)
[2019-09-26] MEDS: METOPROLOL TARTRATE 25 MG TABLET PO SCH (23:35)
[2019-09-27] MEDS ORDERED: ALBUTEROL FS 2.5 MG/3 ML VIAL.NEB NEB PRN (01:30)
--- NOTE | 2019-09-27 03:00 | NUR ---
GPS/RN NOTES: PHARMACY CALLED ([facility]) CALLED REGARDING PT'S ORDER FOR LOVENOX. ORDERED FOR CREATININE LAB DRAW AT 0500. WILL ENDORSE TO NEXT SHIFT TO CLARIFY AND HOLD LOVENOX PRIOR TO CREATININE LEVELS.
[2019-09-27] MEDS: METOPROLOL TARTRATE 25 MG TABLET PO SCH ×4 (06:10→23:47)
[2019-09-27 08:00] VITALS: BP 140/83
[2019-09-27 08:15] LABS: ALBUMIN 3.6 g/dL (3.4-5.0); BILIRUBIN,TOTAL 0.6 mg/dL (0.2-1.0); CALCIUM, SERUM 9.2 mg/dL (8.5-10.1); CREATININE 0.9 mg/dL (0.6-1.3); POTASSIUM 4.1 mmol/L (3.5-5.1); TOTAL PROTEIN, SERUM 6.9 g/dL (6.4-8.2)
[2019-09-27] MEDS: BENAZEPRIL HCL 20 MG TABLET PO SCH (08:28)
[2019-09-27] MEDS: CLONIDINE HCL 0.1 MG TABLET PO PRN (08:28)
[2019-09-27] MEDS: GABAPENTIN 300 MG CAPSULE PO SCH ×3 (08:28→17:01)
[2019-09-27] MEDS: ASPIRIN 81 MG TAB.CHEW PO SCH (08:28)
[2019-09-27] MEDS: AMLODIPINE BESYLATE 10 MG TABLET PO SCH (08:29)
[2019-09-27] MEDS: LEVOTHYROXINE SODIUM 25 MCG TABLET PO SCH (08:29)
[2019-09-27] MEDS: hydrOXYzine PAMOATE 25 MG CAPSULE PO PRN (08:30)
[2019-09-27] MEDS: ISOSORBIDE MONONITRATE (30MG) 30 MG TAB.SR.24H PO SCH (08:30)
[2019-09-27] MEDS ORDERED: ENOXAPARIN SODIUM 60 MG/0.6 ML DISP.SYRIN SQ SCH ×2 (09:00→21:00)
[2019-09-27] MEDS ORDERED: NICOTINE PATCH (14MG) 14 MG PATCH.TD24 TD SCH (09:00)
[2019-09-27] MEDS: CEPHALEXIN MONOHYDRATE 250 MG CAPSULE PO SCH ×3 (09:03→17:01)
[2019-09-27] MEDS: NICOTINE PATCH (21MG) 21 MG PATCH.TD24 TD SCH (10:02)
[2019-09-27 11:28] LABS: BASOPHILS # (AUTO) 0.1 /CMM (0.0-0.2); EOSINOPHILS % (AUTO) 5.8 % (0.0-6.0); HEMATOCRIT 47 % (33-45); HEMOGLOBIN 15.6 g/dL (11.5-14.8); LYMPHOCYTES # (AUTO) 1.5 /CMM (0.8-4.8); LYMPHOCYTES % (AUTO) 19.1 % (20.0-44.0); MEAN CORPUSCULAR HGB CONC 33 g/dl (31.0-36.0); MEAN CORPUSCULAR VOLUME 91 fL (82-100); MONOCYTES # (AUTO) 0.5 /CMM (0.1-1.30); MONOCYTES % (AUTO) 6.6 % (2.0-12.0); NEUTROPHILS # (AUTO) 5.5 /CMM (1.8-8.9); NEUTROPHILS % (AUTO) 67.5 % (43.0-81.0); PLATELET COUNT (AUTO) 220 /CMM (150-450); RED BLOOD CELL COUNT(AUTO) 5.22 MIL/uL (4.0-5.2); WHITE BLOOD COUNT (AUTO) 8.1 K/uL (4.3-11.0)
[2019-09-27] MEDS: ENOXAPARIN SODIUM 40 MG/0.4 ML DISP.SYRIN SQ SCH (13:04)
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
[2019-09-27 16:00] VITALS: BP 122/63
--- NOTE | 2019-09-27 16:22 | NUR ---
Individual Intervention: SW met with the pt at bedside and the pt stated that she wanted to understand why she was being sent to a nursing facility. SW stated that her mother and brother do not feel that it would be safe for her to continue living in her own trailer. Pt stated that she feels that her family does not want to care for her. SW challenged the pt to think about how they do care and are showing their concern for her safety.
--- NOTE | 2019-09-27 19:00 | NUR ---
NURSING NOTE: ORDER FOR COVID TEST WAS GIVEN HOWEVER PT HAS TESTED NEGATIVE ON 09/24/2019. NO COVID TEST REQUIRED AT THIS TIME.
[2019-09-27 20:20] VITALS: BP 127/67
[2019-09-27] MEDS: QUETIAPINE FUMARATE 25 MG TABLET PO SCH (21:10)
[2019-09-27] MEDS: ATORVASTATIN 40 MG TABLET PO SCH (21:10)
[2019-09-28] MEDS: METOPROLOL TARTRATE 25 MG TABLET PO SCH ×4 (05:59→23:50)
[2019-09-28 08:00] VITALS: BP 152/85
[2019-09-28] MEDS: ASPIRIN 81 MG TAB.CHEW PO SCH (09:03)
[2019-09-28] MEDS: SERTRALINE HCL 50 MG TABLET PO SCH (09:04)
[2019-09-28] MEDS: LEVOTHYROXINE SODIUM 25 MCG TABLET PO SCH (09:04)
[2019-09-28] MEDS: GABAPENTIN 300 MG CAPSULE PO SCH ×3 (09:04→17:06)
[2019-09-28] MEDS: CEPHALEXIN MONOHYDRATE 250 MG CAPSULE PO SCH ×3 (09:04→17:06)
[2019-09-28] MEDS: ISOSORBIDE MONONITRATE (30MG) 30 MG TAB.SR.24H PO SCH (09:04)
[2019-09-28] MEDS: AMLODIPINE BESYLATE 10 MG TABLET PO SCH (09:05)
[2019-09-28] MEDS: BENAZEPRIL HCL 20 MG TABLET PO SCH (09:05)
[2019-09-28] MEDS ORDERED: OLANZAPINE 10 MG VIAL IM STA (09:26)
[2019-09-28] MEDS: NICOTINE PATCH (21MG) 21 MG PATCH.TD24 TD SCH (09:30)
[2019-09-28] MEDS: ENOXAPARIN SODIUM 40 MG/0.4 ML DISP.SYRIN SQ SCH (09:41)
--- NOTE | 2019-09-28 09:51 | NUR ---
GPS/RN-NOTES NOTED PATIENT IN HER ROOM VERY AGITATED THROWING WATER PITCHER ON THE FLOOR SCREAMING AND YELLING AT STAFF HELPING HER. PATIENT ALSO THROWING HER WALKER AND WALKING WITHOUT WALKER REDIRECTED AND OFFERED ATIVAN P.O BUT PATIENT SCREAMING USING FOUL LANGUAGES.PATIENT ALSO SCREAMING AND YELLING AT DR. PIEDRA . DR. PIEDRA GAVE VERBAL ORDER OF ZYPREXA 10MG IM X1. NOTED AND CARRIED OUT BY THE CHARGE NURSE.
--- NOTE | 2019-09-28 14:13 | NUR ---
GPS/RN-NOTES PATIENT REFUSED TO USE WALKER AMBULATING DESPITE EXPLANATIONS RISK AND BENEFITS. PATIENT STATED" I CAN WALK WITHOUT WALKER,DO YOU THINK I'M STUPID BITCH, ALL OF YOU ARE BAD PEOPLE". PATIENT WAS DIRECTED IN A CALM MANNER,STILL REFUSED WALKER. CHARGE NURSE AWARE.
[2019-09-28] MEDS: LORAZEPAM 0.5 MG TABLET PO PRN (14:18)
--- NOTE | 2019-09-28 14:22 | NUR ---
GPS/RN-NOTES PATIENT SCREAMING AND YELLING IN THE ROOM STATED" GIVE ME SOMETHING TO CLAM ME DOWN OR SEDATIVE BITCH". ATIVAN 1MG P.O GIVEN PRN ORDER. WILL CONT. MONITORING FOR SAFETY AND BEHAVIOR.
--- NOTE | 2019-09-28 15:25 | NUR ---
GPS/RN-NOTES PATIENT IN THE DAY ROOM READING BOOKS,CALM NO ACUTE DISTRESS NOTED.
[2019-09-28 16:00] VITALS: BP 152/70
[2019-09-28] MEDS: QUETIAPINE FUMARATE 25 MG TABLET PO SCH ×2 (17:06→21:17)
[2019-09-28 20:14] VITALS: BP 142/55
[2019-09-28] MEDS: ATORVASTATIN 40 MG TABLET PO SCH (21:17)
[2019-09-29] MEDS: METOPROLOL TARTRATE 25 MG TABLET PO SCH ×3 (05:44→17:16)
[2019-09-29 08:00] VITALS: BP 156/95
[2019-09-29] MEDS: ENOXAPARIN SODIUM 40 MG/0.4 ML DISP.SYRIN SQ SCH (08:23)
[2019-09-29] MEDS: NICOTINE PATCH (21MG) 21 MG PATCH.TD24 TD SCH (08:41)
[2019-09-29] MEDS: ASPIRIN 81 MG TAB.CHEW PO SCH (08:41)
[2019-09-29] MEDS: SERTRALINE HCL 50 MG TABLET PO SCH (08:41)
[2019-09-29] MEDS: LEVOTHYROXINE SODIUM 25 MCG TABLET PO SCH (08:42)
[2019-09-29] MEDS: BENAZEPRIL HCL 20 MG TABLET PO SCH (08:42)
[2019-09-29] MEDS: GABAPENTIN 300 MG CAPSULE PO SCH ×3 (08:42→16:37)
[2019-09-29] MEDS: QUETIAPINE FUMARATE 25 MG TABLET PO SCH ×3 (08:42→21:04)
[2019-09-29] MEDS: AMLODIPINE BESYLATE 10 MG TABLET PO SCH (08:43)
[2019-09-29] MEDS: ISOSORBIDE MONONITRATE (30MG) 30 MG TAB.SR.24H PO SCH (08:43)
[2019-09-29] MEDS: CEPHALEXIN MONOHYDRATE 250 MG CAPSULE PO SCH ×3 (08:45→16:37)
[2019-09-29] MEDS: hydrOXYzine PAMOATE 25 MG CAPSULE PO PRN (11:17)
[2019-09-29] MEDS: LORAZEPAM 0.5 MG TABLET PO PRN (12:16)
--- NOTE | 2019-09-29 15:39 | NUR ---
Individual Counseling: This SW met with the pt. at beside to facilitate counseling regarding positive coping mechanisms. The patient was receptive to meeting with ELKE. Pt. presented irritable, raising her voice and stated, "this is just how I speak". ELKE educated pt. on positive coping mechanisms including: grounding techniques, and tool for emotional awareness. Pt. stated, "my mood is okay, I just need to get out of here". ELKE informed pt. she will be seen daily by psychiatrist and the IDT will formulate a safe and proper discharge plan. Pt.will be invited to attend future therapeutic milieu.
[2019-09-29 16:00] VITALS: BP 136/61
[2019-09-29 20:47] VITALS: BP 139/70
[2019-09-29] MEDS: ATORVASTATIN 40 MG TABLET PO SCH (21:04)
[2019-09-30] MEDS: METOPROLOL TARTRATE 25 MG TABLET PO SCH ×2 (05:41)
[2019-09-30] MEDS: LORAZEPAM 0.5 MG TABLET PO PRN (07:39)
[2019-09-30] MEDS: LEVOTHYROXINE SODIUM 25 MCG TABLET PO SCH (07:39)
--- NOTE | 2019-09-30 07:40 | NUR ---
RN NOTE- PT W ANXIETY. ATIVAN 1 MG GIVEN
[2019-09-30] MEDS: ASPIRIN 81 MG TAB.CHEW PO SCH (08:08)
[2019-09-30] MEDS: NICOTINE PATCH (21MG) 21 MG PATCH.TD24 TD SCH (08:08)
[2019-09-30] MEDS: CEPHALEXIN MONOHYDRATE 250 MG CAPSULE PO SCH ×3 (08:09→16:32)
[2019-09-30] MEDS: QUETIAPINE FUMARATE 25 MG TABLET PO SCH ×3 (08:09→21:34)
[2019-09-30] MEDS: GABAPENTIN 300 MG CAPSULE PO SCH ×3 (08:09→16:32)
[2019-09-30] MEDS: SERTRALINE HCL 50 MG TABLET PO SCH (08:09)
[2019-09-30] MEDS: AMLODIPINE BESYLATE 10 MG TABLET PO SCH (08:11)
[2019-09-30] MEDS: ISOSORBIDE MONONITRATE (30MG) 30 MG TAB.SR.24H PO SCH (08:12)
[2019-09-30] MEDS: ENOXAPARIN SODIUM 40 MG/0.4 ML DISP.SYRIN SQ SCH (08:12)
[2019-09-30] MEDS: BENAZEPRIL HCL 20 MG TABLET PO SCH (08:13)
[2019-09-30 08:28] VITALS: BP 150/74
--- NOTE | 2019-09-30 08:32 | NUR ---
Individual Counseling: SW met with the pt and attempted to discuss her discharge plan to a long-term facility. Pt stated that she did not want to go to an "old people home." SW stated that this is a temporary placement that will allow her to further stabilize and then she will be more fit to live at a placement of her choice. SW informed her that she appears to remain paranoid and that her family cannot care for her at this time. Pt stated that she wanted to know if she will be forced to stay at the facility longer than she wants to and SW stated that she is not on a hold. Pt stated that she wants to be discharged as soon as possible.
--- NOTE | 2019-09-30 09:00 | NUR ---
RN NOTE- RESTING IN HER PATIENT IN HER ROOM ,AMBULATORY WITH THE WALKER. NEEDY AND DEMANDING. MED COMPLIANT. ALL NEEDS ATTENDED AND ANTICIPATED.ALL NEEDS ATTENDED AND ANTICIPATED. WILL CONTINUE MONITORING Q15 MINS. FOR SAFETY AND BEHAVIOR.
[2019-09-30] MEDS: METOPROLOL TARTRATE 50 MG TABLET PO SCH ×3 (13:24→23:14)
--- NOTE | 2019-09-30 15:22 | NUR ---
Individual Counseling: This SW met with the pt. at beside to facilitate 1on1 counseling. The patient presented sitting on he rbed brushing her hair and sated she did not want to meet with SW. SW attempted to explore and identify the patient's feelings. Patient stated "leave me alone". Pt.will be invited to attend future therapeutic milieu.
[2019-09-30 15:59] VITALS: BP 121/71
--- NOTE | 2019-09-30 19:25 | NUR ---
GPS/RN OPENING NOTES RECEIVED PATIENT IN BED, ASLEEP BUT ABLE TO BE AWAKEN, RESPIRATIONS EVEN AND UNLABORED, BED LOCKED, WATER WITHIN REACH. MONITORED FOR ANY CHANGES.
[2019-09-30 20:00] VITALS: BP 136/59
[2019-09-30 20:19] VITALS: BP 136/59
[2019-09-30] MEDS: ATORVASTATIN 40 MG TABLET PO SCH (21:34)
--- NOTE | 2019-09-30 21:36 | NUR ---
GPS/RN NOTES PATIENT REQUESTED AND OFFERED SOME SNACKS, REQUESTED TUNA SANDWICH AND CRANBERRY JUICE, ABLE TO TOLERATE MEDICATION LIPITOR AND SEROQUEL. REQUESTING FOR SLEEP MEDICATION IN A LITTLE WHILE.
[2019-09-30] MEDS: hydrOXYzine PAMOATE 25 MG CAPSULE PO PRN (22:26)
--- NOTE | 2019-10-01 02:42 | NUR ---
GPS/RN NOTES PATIENT AWAKEN FROM SLEEP, WALK TO THE BATHROOM AND KEEPING SELF PREOCCUPIED BY WRITING, ASKED IF THERE IS ANYTHING SHE NEEDS, SAID NO AND THAT SHE IS FINE.
[2019-10-01] MEDS: METOPROLOL TARTRATE 50 MG TABLET PO SCH ×3 (05:00→17:14)
[2019-10-01 08:00] VITALS: BP 157/73
[2019-10-01] MEDS: LEVOTHYROXINE SODIUM 25 MCG TABLET PO SCH (08:08)
[2019-10-01] MEDS: ASPIRIN 81 MG TAB.CHEW PO SCH (08:40)
[2019-10-01] MEDS: AMLODIPINE BESYLATE 10 MG TABLET PO SCH (08:41)
[2019-10-01] MEDS: QUETIAPINE FUMARATE 25 MG TABLET PO SCH ×3 (08:41→21:16)
[2019-10-01] MEDS: ISOSORBIDE MONONITRATE (30MG) 30 MG TAB.SR.24H PO SCH (08:41)
[2019-10-01] MEDS: SERTRALINE HCL 50 MG TABLET PO SCH (08:41)
[2019-10-01] MEDS: NICOTINE PATCH (21MG) 21 MG PATCH.TD24 TD SCH (08:42)
[2019-10-01] MEDS: BENAZEPRIL HCL 20 MG TABLET PO SCH (08:42)
[2019-10-01] MEDS: GABAPENTIN 300 MG CAPSULE PO SCH ×3 (08:42→17:13)
[2019-10-01] MEDS: ENOXAPARIN SODIUM 40 MG/0.4 ML DISP.SYRIN SQ SCH (08:44)
[2019-10-01] MEDS: CEPHALEXIN MONOHYDRATE 250 MG CAPSULE PO SCH ×3 (08:47→17:13)
[2019-10-01] MEDS: ACETAMINOPHEN 325 MG TABLET PO PRN (09:03)
[2019-10-01] MEDS: LORAZEPAM 0.5 MG TABLET PO PRN (09:03)
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
[2019-10-01 16:00] VITALS: BP 129/75
[2019-10-01 20:00] VITALS: BP 120/59
[2019-10-01] MEDS: ATORVASTATIN 40 MG TABLET PO SCH (21:16)
[2019-10-02] MEDS: METOPROLOL TARTRATE 50 MG TABLET PO SCH ×5 (00:10→23:59)
[2019-10-02 08:00] VITALS: BP 155/79
[2019-10-02] MEDS: GABAPENTIN 300 MG CAPSULE PO SCH ×3 (08:09→16:25)
[2019-10-02] MEDS: LEVOTHYROXINE SODIUM 25 MCG TABLET PO SCH (08:09)
[2019-10-02] MEDS: hydrOXYzine PAMOATE 25 MG CAPSULE PO PRN (08:09)
[2019-10-02] MEDS: ISOSORBIDE MONONITRATE (30MG) 30 MG TAB.SR.24H PO SCH (08:09)
[2019-10-02] MEDS: AMLODIPINE BESYLATE 10 MG TABLET PO SCH (08:09)
[2019-10-02] MEDS: CEPHALEXIN MONOHYDRATE 250 MG CAPSULE PO SCH ×3 (08:10→16:25)
[2019-10-02] MEDS: ASPIRIN 81 MG TAB.CHEW PO SCH (08:10)
[2019-10-02] MEDS: BENAZEPRIL HCL 20 MG TABLET PO SCH (08:10)
[2019-10-02] MEDS: ENOXAPARIN SODIUM 40 MG/0.4 ML DISP.SYRIN SQ SCH (08:14)
[2019-10-02] MEDS: SERTRALINE HCL 50 MG TABLET PO SCH (08:17)
[2019-10-02] MEDS: QUETIAPINE FUMARATE 25 MG TABLET PO SCH ×3 (08:17→21:20)
[2019-10-02] MEDS: NICOTINE PATCH (21MG) 21 MG PATCH.TD24 TD SCH (08:17)
[2019-10-02 10:56] VITALS: BP 150/84
[2019-10-02 10:59] VITALS: BP 118/72
--- NOTE | 2019-10-02 12:41 | NUR ---
RN-CO: METOPROLOL NOT GIVEN FOR 53 HEART RATE.
[2019-10-02 15:43] VITALS: BP 142/75
[2019-10-02 16:58] VITALS: BP 144/75
[2019-10-02 19:49] VITALS: BP 113/83
[2019-10-02] MEDS: ATORVASTATIN 40 MG TABLET PO SCH (21:20)
[2019-10-02] MEDS: CLONIDINE HCL 0.1 MG TABLET PO PRN (21:21)
--- NOTE | 2019-10-02 21:21 | NUR ---
GPS RN NOTE: PT. BP 163/83. ADMINISTERED CATAPRES 0.2 MG PO PRN ORDERED. WILL CONTINUE TO MONITOR FOR SAFETY AND BEHAVIOR
[2019-10-03] MEDS: ACETAMINOPHEN 325 MG TABLET PO PRN (00:23)
--- NOTE | 2019-10-03 00:23 | NUR ---
GPS RN NOTE: PAIN PT. C/O OF HEADACHE AND REQUESTED TYLENOL. ADMINISTERED TYLENOL 650 MG PO PRN ORDERED. WILL CONTINUE TO MONITOR FOR SAFETY AND BEHAVIOR
[2019-10-03] MEDS: METOPROLOL TARTRATE 50 MG TABLET PO SCH ×3 (06:00→17:10)
[2019-10-03 08:00] VITALS: BP 143/71
[2019-10-03] MEDS: NICOTINE PATCH (21MG) 21 MG PATCH.TD24 TD SCH (08:34)
[2019-10-03] MEDS: ISOSORBIDE MONONITRATE (30MG) 30 MG TAB.SR.24H PO SCH (08:35)
[2019-10-03] MEDS: BENAZEPRIL HCL 20 MG TABLET PO SCH (08:35)
[2019-10-03] MEDS: SERTRALINE HCL 50 MG TABLET PO SCH (08:35)
[2019-10-03] MEDS: AMLODIPINE BESYLATE 10 MG TABLET PO SCH (08:35)
[2019-10-03] MEDS: GABAPENTIN 300 MG CAPSULE PO SCH ×3 (08:35→16:11)
[2019-10-03] MEDS: LEVOTHYROXINE SODIUM 25 MCG TABLET PO SCH (08:35)
[2019-10-03] MEDS: CEPHALEXIN MONOHYDRATE 250 MG CAPSULE PO SCH ×3 (08:35→16:11)
[2019-10-03] MEDS: QUETIAPINE FUMARATE 25 MG TABLET PO SCH ×3 (08:35→22:19)
[2019-10-03] MEDS: ASPIRIN 81 MG TAB.CHEW PO SCH (08:35)
[2019-10-03] MEDS: ENOXAPARIN SODIUM 40 MG/0.4 ML DISP.SYRIN SQ SCH (08:36)
[2019-10-03 16:00] VITALS: BP 120/59
[2019-10-03 19:35] VITALS: BP 111/49
[2019-10-03] MEDS: ATORVASTATIN 40 MG TABLET PO SCH (22:19)
[2019-10-04] MEDS: CLONIDINE HCL 0.1 MG TABLET PO PRN (00:30)
--- NOTE | 2019-10-04 00:35 | NUR ---
METOPROLOL HELD hr low at 55; clonidine administered for sbp of 160 prn as ordered.
[2019-10-04] MEDS: METOPROLOL TARTRATE 50 MG TABLET PO SCH ×4 (06:00→17:06)
--- NOTE | 2019-10-04 06:10 | NUR ---
metoprolol held hr too low at 50 bpm.
[2019-10-04 08:00] VITALS: BP 127/78
[2019-10-04] MEDS: LEVOTHYROXINE SODIUM 25 MCG TABLET PO SCH (08:09)
[2019-10-04] MEDS: CEPHALEXIN MONOHYDRATE 250 MG CAPSULE PO SCH ×3 (08:18→17:06)
[2019-10-04] MEDS: ASPIRIN 81 MG TAB.CHEW PO SCH (08:18)
[2019-10-04] MEDS: ISOSORBIDE MONONITRATE (30MG) 30 MG TAB.SR.24H PO SCH (08:18)
[2019-10-04] MEDS: GABAPENTIN 300 MG CAPSULE PO SCH ×3 (08:19→17:05)
[2019-10-04] MEDS: BENAZEPRIL HCL 20 MG TABLET PO SCH (08:19)
[2019-10-04] MEDS: AMLODIPINE BESYLATE 10 MG TABLET PO SCH (08:19)
[2019-10-04] MEDS: SERTRALINE HCL 50 MG TABLET PO SCH (08:19)
[2019-10-04] MEDS: QUETIAPINE FUMARATE 25 MG TABLET PO SCH ×3 (08:19→21:43)
[2019-10-04] MEDS: NICOTINE PATCH (21MG) 21 MG PATCH.TD24 TD SCH (08:20)
[2019-10-04] MEDS: ENOXAPARIN SODIUM 40 MG/0.4 ML DISP.SYRIN SQ SCH (08:20)
--- NOTE | 2019-10-04 09:09 | NUR ---
SNF CONTACT: ELKE faxed clinical information to Gracie tenant relations coordinator at [facility] Address: [address] [place] [address], [place] [address] . Addendum: 10/04/19 at 0911 by EMMANUELLE BEDOYA pt will be picked up by facility transport at 11:00am on 10/05/19.
--- NOTE | 2019-10-04 09:13 | NUR ---
FAMILY CONTACT: ELKE contacted pts brother, Rhys ([phone]) and informed him via voicemail that pt will be discharged on 10/05/[address] [facility], SW provided him with SNF contact information.
[2019-10-04 13:31] LABS: BASOPHILS % (AUTO) 0.9 % (0.0-2.0); EOSINOPHILS % (AUTO) 4.4 % (0.0-6.0); HEMATOCRIT 41 % (33-45); HEMOGLOBIN 13.7 g/dL (11.5-14.8); LYMPHOCYTES # (AUTO) 1.3 /CMM (0.8-4.8); MEAN CORPUSCULAR HGB CONC 34 g/dl (31.0-36.0); MEAN CORPUSCULAR VOLUME 91 fL (82-100); MONOCYTES # (AUTO) 0.4 /CMM (0.1-1.30); MONOCYTES % (AUTO) 8.3 % (2.0-12.0); NEUTROPHILS # (AUTO) 3.3 /CMM (1.8-8.9); NEUTROPHILS % (AUTO) 62.4 % (43.0-81.0); PLATELET COUNT (AUTO) 237 /CMM (150-450); WHITE BLOOD COUNT (AUTO) 5.2 K/uL (4.3-11.0)
[2019-10-04 13:37] LABS: POTASSIUM 3.4 mmol/L (3.5-5.1)
--- NOTE | 2019-10-04 14:07 | NUR ---
INDIVIDUAL MEETING: SW met with pt at bedside to discuss her discharge plan. SW informed her that she will be discharged tomorrow and pt stated that she was aware. Pt stated that she will be discharged to [facility] SW informed her that pt brother has been informed and pt agreed. Pts mood is euthymic with congruent affect. On approach pt was calm and cooperative.
[2019-10-04 16:00] VITALS: BP 126/74
[2019-10-04 20:00] VITALS: BP 114/67
[2019-10-04 20:14] VITALS: BP 114/67
[2019-10-04] MEDS: ATORVASTATIN 40 MG TABLET PO SCH (21:43)
[2019-10-04] MEDS: LORAZEPAM 0.5 MG TABLET PO PRN (23:31)
--- NOTE | 2019-10-04 23:31 | NUR ---
ANXIETY: PRN ATIVAN GIVEN PATIENT VERBALIZED THAT SHE IS FEELING VERY ANXIOUS & RESTLESS. PT. WANTED TO TAKE MEDICINE FOR ANXIETY. PRN ATIVAN 1 MG PO GIVEN ORDERED. WILL CONTINUE TO MONITOR FOR EFFECTIVENESS.
[2019-10-05] MEDS: ACETAMINOPHEN 325 MG TABLET PO PRN (00:17)
--- NOTE | 2019-10-05 00:17 | NUR ---
PRN TYLENOL GIVEN PATIENT C/O LOWER BACK PAIN 07/11 & WANTED TO TAKE PAIN MEDICINE. PRN TYLENOL 650 MG PO GIVEN ORDERED. WILL CONTINUE TO MONITOR.
--- NOTE | 2019-10-05 00:23 | NUR ---
REFUSED METOPROLOL PATIENT HAD C/O BACK PAIN & ONLY WANTED TO TAKE PAIN MEDICINE, OFFERED HER METOPROLOL SCHEDULED BUT PATIENT REFUSED TO TAKE MEDICINE. PATIENT'S PULSE WAS 53 WELL. BP WAS WNL. WILL CONTINUE TO MONITOR FOR ANY CHANGES.
[2019-10-05] MEDS: METOPROLOL TARTRATE 50 MG TABLET PO SCH ×2 (06:00)
[2019-10-05 06:13] VITALS: BP 134/75
--- NOTE | 2019-10-05 06:15 | NUR ---
HELD METOPROLOL PATIENT'S PULSE IS 57, METOPROLOL HELD ACCORDING TO THE PARAMETERS TO PREVENT BRADYCARDIA. PATIENT IS CALM & COOPERATIVE. NO ACUTE CHANGES NOTED AT THIS TIME. WILL CONTINUE TO MONITOR.
[2019-10-05 08:00] VITALS: BP 146/78
[2019-10-05] MEDS: LEVOTHYROXINE SODIUM 25 MCG TABLET PO SCH (08:12)
[2019-10-05] MEDS: QUETIAPINE FUMARATE 25 MG TABLET PO SCH (08:13)
[2019-10-05] MEDS: ISOSORBIDE MONONITRATE (30MG) 30 MG TAB.SR.24H PO SCH (08:13)
[2019-10-05] MEDS: BENAZEPRIL HCL 20 MG TABLET PO SCH (08:13)
[2019-10-05 08:14] VITALS: BP 146/78
[2019-10-05] MEDS: GABAPENTIN 300 MG CAPSULE PO SCH (08:14)
[2019-10-05] MEDS: ASPIRIN 81 MG TAB.CHEW PO SCH (08:14)
[2019-10-05] MEDS: SERTRALINE HCL 50 MG TABLET PO SCH (08:14)
[2019-10-05] MEDS: CEPHALEXIN MONOHYDRATE 250 MG CAPSULE PO SCH (08:14)
[2019-10-05] MEDS: AMLODIPINE BESYLATE 10 MG TABLET PO SCH (08:14)
[2019-10-05] MEDS: NICOTINE PATCH (21MG) 21 MG PATCH.TD24 TD SCH (08:14)
[2019-10-05] MEDS ORDERED: ENOXAPARIN SODIUM 40 MG/0.4 ML DISP.SYRIN SQ SCH (09:00)
--- NOTE | 2019-10-05 09:24 | NUR ---
DISCHARGE NOTE: Pt will be discharged at 11:00am via facility transport to [facility] located at [address] [place] [id number] . Pts brother, Rhys ([phone]) has been notified via voicemail. Pts mood is dysphoric with congruent affect. Pt denied visual/auditory hallucinations and denied suicidal/homicidal ideation. Pt will be under the care of Psychiatrist: Dr. Celsa Artis [address] [address] [phone] and Shift Mechanic: Dr. Hawthorne located at [address] [place] [address] [id number], [place] [address]; . The multidisciplinary exit care form was done, printed, signed, and given to the patient.
--- NOTE | 2019-10-05 10:13 | NUR ---
RN NOTE: REPORT CALLED TO RALPH BREAUX RN AT [facility] @ [phone]
--- NOTE | 2019-10-05 11:00 | NUR ---
AIRLINE FLIGHT ATTENDANT NOTE: 73 YEAR OLD FEMALE DISCHARGED TO [facility] IN STABLE CONDITION. COMPLIANT WITH MEDICATIONS, COOPERATIVE WITH TREATMENT PLANS PATIEN DENIES SI/HI AND INSTRUCTED TO GO TO THE CLOSEST ER IF DEVELOPING SI/HI. BEHAVIOR IMPROVED. PSYCHIATRIC TREATMENT PLANS MET, MEDICAL TREATMENT PLANS DEFERRED FOR CONTINUAL MONITORING. EDUCATED PT ABOUT AFTER CARE PLAN AND COPY PROVIDED. RETURNED PERSONAL BELONGINGS TO PATIENT. MEDICATIONS RECONCILED WITH DR. PIEDRA AND DR ASHLEE CANO. REPORT GIVEN TO RALPH BREAUX RN FOR CONTINUITY OF CARE. PT SIGNED DISCHARGE PAPERWORK. WOUND PICTURES TAKEN AND DOCUMENTED IN THE CHART. PT LEFT THE FACILITY VIA WHEELCHAIR WITH [facility]. ARM BANDS REMOVED.
== END 2019-10-05 11:00 | DRG 885 ==
LOC: GPS 16:06
PROVIDERS: ADMIT Psychiatry & Neurology Psychiatry; ATTEND Student in an Organized Health Care Education/Training Program
DX: F29 Unspecified psychosis not due to a substance or known physiological condition (principal); N17.0 Acute kidney failure with tubular necrosis; F23 Brief psychotic disorder; E87.1 Hypo-osmolality and hyponatremia; F03.91 Unspecified dementia, unspecified severity, with behavioral disturbance; F41.9 Anxiety disorder, unspecified; E03.9 Hypothyroidism, unspecified; I10 Essential (primary) hypertension; E86.0 Dehydration; E78.5 Hyperlipidemia, unspecified; F32.9 Major depressive disorder, single episode, unspecified; I25.10 Atherosclerotic heart disease of native coronary artery without angina pectoris; M81.0 Age-related osteoporosis without current pathological fracture; G62.9 Polyneuropathy, unspecified; I25.2 Old myocardial infarction; E86.9 Volume depletion, unspecified; E83.52 Hypercalcemia
CPT/HCPCS: 36415; 80048-TC; 80053-TC; 80061-TC; 82962-TC; 85025-TC; J1650; J3490; Q0177